=== PATIENT | male | born 1990 | race Two or more races ===

== ENCOUNTER 2022-10-13 17:55 | Emergency (ER) | payer OTHER ==
[~2022-10-13] VITALS: Ht 180.3 cm; Wt 86.2 kg
[2022-10-13] MEDS ORDERED: BUTALBIT-ACETA1 EACH PO (23:26)
== END 2022-10-14 00:07 | disposition home or self-care (01) ==
LOC: ER 17:55
DX: R11.2 Nausea with vomiting, unspecified (principal); R51.9 Headache, unspecified; Z20.822 Contact with and (suspected) exposure to COVID-19

== ENCOUNTER 2022-10-14 09:55 | Emergency (ER) | payer OTHER ==
[~2022-10-14] VITALS: Ht 180.3 cm; Wt 86.2 kg
[~2022-10-14 09:55] MED LIST: BUTALBIT-ACETA1 EACH PO
== END 2022-10-14 15:24 | disposition home or self-care (01) ==
LOC: ER 09:55
DX: G43.909 Migraine, unspecified, not intractable, without status migrainosus (principal); G44.89 Other headache syndrome